=== PATIENT | female | born 1995 | race Caucasian/White ===

== ENCOUNTER 2024-02-27 15:10 | Emergency (ER) | payer OTHER, SELFPAY ==
[2024-02-27 15:12] VITALS: BP 127/83
--- NOTE | 2024-02-27 18:50 | ED.SKININJ ---
HPI-Injury
General
Chief Complaint: Bite
Source: patient
Exam Limitations: none
Time Seen by Provider: 02/27/24 17:20
Nursing documentation reviewed up to this point in time: agreed with
History of Present Illness-Injury
Is this injury a work related problem?: No
Is pt an associate of [facility]?: No
Initial Injury comments:
Patient is a 28-year-old female who presents to the emergency department with a dog bite to her right ear that occurred around 12:30 PM today. Patient went to urgent care and was sent to the emergency department. The dog is known and is up-to-date
on shots. Patient has not had a tetanus shot in the past 10 years. The bite was reportedly an accident and not from a dog being overly aggressive.
Past History
Past History
ED Past Medical History: None
Social History
Tobacco: Non-smoker
Review of Systems
Review of Systems
All Other Systems: Not applicable
Phy Exam
Physical Exam
Physical Exam:
Physical Exam
General: No apparent distress, alert and appropriate, well nourished, well hydrated
HENT: Normocephalic, supple with no contusions. On the right pinna on the periphery is a 2 cm laceration with through and through on the edge. TMs intact and clear. No involvement of the inner ear.
Eyes: Clear sclera, conjuctiva without injection
Neuro: Alert and oriented x 3, CN II - XII intact, no motor focality, no cerebellar dysfunction
Skin: Laceration as stated above
Psychiatric: well kept. interactive and cooperative
Extremities: No edema, cyanosis
Course
Orders/Labs/Results
Orders:
Orders
02/27/24 17:52
Amoxicillin 875 mg/Clav 125 mg [Augmentin 875 mg/125 mg] 1 tablet PO NOW STA
Tetanus/Diphth/Acelpertussis [Adacel] 0.5 ml IM .ONCE ONE
02/27/24 18:00
Sodium Bicarbonate 2 meq TOPICAL ONCE ONE
Vital Signs
Initial and Last Documented VS:
Initial Vital Signs
Temp Pulse Resp BP Pulse Ox
98.2 F 103 20 127/83 98
02/27/24 15:12 02/27/24 15:12 02/27/24 15:12 02/27/24 15:12 02/27/24 15:12
Last Documented Vital Signs
Temp Pulse Resp BP Pulse Ox
98.2 F 103 20 127/83 98
02/27/24 15:12 02/27/24 15:12 02/27/24 15:12 02/27/24 15:12 02/27/24 15:12
Procedures
Laceration Closure
Right Middle Posterior Ear:
Status of Wound: clean
Size of Wound in cm: 2
Description of Wound Edges: ragged (Through pinna with small tag on point)
Preparation: cleaned with Betadine
Anesthesia: 1% Lidocaine and added Na Bicarb to local
Revision/Debridement: minor revision
Wound exploration: explored to base- no FB
Type of Closure: layered closure and interrupted sutures
Skin Closure Material: 6-0 prolene (7) and 5-0 chromic gut (1)
Number of sutures: 8
*Pulse Oximetry
Patient hypoxic: no
*EKG
Interpreted by ED Provider?: NA
*[employer] Interpretation
Rate: [employer]- N/A
*Critical Care Note
Total Time (30-74mins, 75-104mins- exclusive of procedures): Not Applicable
ED Attending Note
-
Portions of this chart may have been created with voice recognition software.� Occasional wrong word or��sound alike� substitutions may have occurred due to the inherent limitations of voice recognition software.
Discharge Plan
Departure
Patient Disposition: Home (Routine Discharge)
Date of Disposition: 02/27/24
Time of Disposition: 18:53
Patient with high blood pressure during this ER visit?: No
Condition: Good
Covid-19: Not Applicable
Discharge Problem:
Ear lobe laceration
Instructions: Laceration Repair With Stitches (DC)
Prescriptions:
New
amoxicillin-pot clavulanate 875-125 mg tablet
1 tab PO BID Qty: 10 0RF
Referrals:
Lazaro Florez MD [Family Provider] - Follow up in 5-7 days
Activity Restrictions/Additional Instructions:
Keep wound clean with soap and water. Use double antibiotic ointment/bacitracin to the area couple times a day. You may use ice to help keep down the swelling 20 to 30 minutes 4-5 times a day. Acetaminophen 650 mg every 6 hours for pain. Watch
for infection which is redness, swelling and pus. Any fevers please return.
Interventions
Interventions:
*General Assessment Last Done: 02/27/24 15:12
*Nursing Disposition Last Done: 02/27/24 19:06
ED-Skin Assessment Last Done: 02/27/24 17:25
Discharge Date and Time
Discharge Date/Time: 02/27/24 19:06
Print Language: GERMAN
[2024-02-27] MEDS: ADACEL 0.5 ML IM (19:01)
[2024-02-27] MEDS: AUGMENTIN 875 MG/125 MG 1 TABLET PO (19:01)
== END 2024-02-27 19:06 | disposition home or self-care (01) ==
LOC: EMR 15:10
PROVIDERS: EMERGENCY PHYSICIAN Emergency Medicine; FAMILY PHYSICIAN Family Medicine
DX: S01.311A Laceration without foreign body of right ear, initial encounter (principal); W54.0XXA Bitten by dog, initial encounter
CPT/HCPCS: 99282; 96372; 90715